=== PATIENT | male | born 1975 | race Two or more races ===

== ENCOUNTER 2024-07-02 08:16 | Day surgery (SDC) | payer OTHER ==
[2024-06-25 08:27] LABS: HEMOGLOBIN 14.2 g/dL (13-16.00); MEAN CELL VOLUME 93.2 fL (80.0-100.00); MEAN CORPUSCULAR HEMOGLOBIN 32.3 pg (27.00-32.0); MEAN CORPUSCULAR HGB CONC 34.6 g/dl (32.0-36.0); PLATELET COUNT 224 K/uL (150-450); RED CELL DISTRIBUTION WIDTH 13.4 % (11.5-14.5)
[2024-06-25 08:56] LABS: PH,URINE 6.5 (5.0-8.0); URINE APPEARANCE Clear; URINE BILIRRUBIN Negative (NEGATIVE); URINE BLOOD Negative; URINE COLOR Yellow; URINE GLUCOSE Negative (NEGATIVE); URINE KETONE Negative (NEGATIVE); URINE LEUKOCYTE Negative; URINE NITRATE Negative; URINE PROTEIN Negative (NEGATIVE)
[2024-06-25 09:01] LABS: INR 0.98; PARTIAL THROMBOPLASTIN TIME 30.8 SECONDS (22.0-34.0); PROTHROMBIN TIME 10.3 SECONDS (9.0-11.5); URINE RBC 4.2 uL (0.0-20.8)
[2024-06-25 09:02] LABS: ALBUMIN 4.1 gm/dL (3.4-5.0); CALCIUM 9.3 mg/dL (8.5-10.1); CREATININE SERUM 0.83 mg/dL (0.70-1.30); GFR 98.07; POTASSIUM 4.12 mEq/L (3.5-5.1)
[2024-06-25 09:15] LABS: URINE BACTERIA 1.2 uL (0.0-1933); URINE EPITHELIAL CELLS 0.7 uL (0.0-38.8)
[~2024-07-02 08:16] MED LIST: ALTACE5 MG PO; LIPITOR20 MG PO
[2024-07-02] MEDS ORDERED: CEFAZOLIN SODIUM 1,000 MG VIAL ONE ×2 (09:04→11:53)
[2024-07-02] MEDS ORDERED: LIDOCAINE HCL 1%/EPINEPHRINE 20ML VIAL IJ ONE (11:51)
[2024-07-02] MEDS ORDERED: POVIDONE-IODINE 118 ML BOTT TOP ONE (11:51)
[2024-07-02] MEDS ORDERED: POVIDONE-IODINE SCRUB 118 ML BOTT TOP ONE (11:51)
[2024-07-02] MEDS ORDERED: EPINEPHRINE HCL/PF 1 MG/ML AMPUL ONE (11:52)
[2024-07-02] MEDS ORDERED: CEFAZOLIN SODIUM 1,000 MG VIAL IV ONE (13:15)
[2024-07-02] MEDS ORDERED: CIPROFLOXACIN HCL 0.175 MG/DR DROPS OP ONE (13:45)
[2024-07-02] MEDS ORDERED: BACITRACIN 28.35 GM OINT.TUBE TOP ONE (13:45)
[2024-07-02] MEDS ORDERED: CEPHALEXIN500 MG PO (13:49)
[2024-07-02] MEDS ORDERED: CIPROFLOXACIN2.5 ML OTIC (13:50)
== END 2024-07-02 15:50 | disposition home or self-care (01) ==
LOC: CIR.AMB 08:16
PROVIDERS: ATTEND Otolaryngology Otology & Neurotology
DX: H61.391 Other acquired stenosis of right external ear canal (principal); H90.A11 Conductive hearing loss, unilateral, right ear with restricted hearing on the contralateral side; E78.00 Pure hypercholesterolemia, unspecified; I10 Essential (primary) hypertension

== ENCOUNTER 2025-07-15 05:04 | Day surgery (SDC) | payer OTHER ==
[2025-07-08 07:56] LABS: URINE APPEARANCE Clear; URINE BILIRRUBIN Negative (NEGATIVE); URINE BLOOD Negative; URINE COLOR Yellow; URINE GLUCOSE Negative (NEGATIVE); URINE KETONE Negative (NEGATIVE); URINE LEUKOCYTE Negative; URINE NITRATE Negative; URINE PROTEIN Negative (NEGATIVE); URINE UROBILINOGEN 0.2 E.U./dl
[2025-07-08 07:59] LABS: URINE BACTERIA 0 uL (0.0-1933); URINE CAST 0.00 uL (0.0-1.40); URINE EPITHELIAL CELLS 0.0 uL (0.0-38.8); URINE RBC 1.3 uL (0.0-20.8); URINE WBC 0 uL (0.0-23.2)
[2025-07-08 08:01] LABS: BASO % 0.9 % (0.1-1.2); EOS # 0.26 (0.04-0.54); EOS % 6.1 % (0.7-7.0); LYMPH # 1.21 (1.18-3.74); LYMPH % 28.5 % (19.3-53.1); MEAN PLATELET VOLUME 9.50 fl (9.4-12.4); MONO # 0.60 (0.24-0.82); NEUT # 2.13 (1.56-6.13); NEUT % 50.2 % (34.0-71.1); RED CELL DISTRIBUTION WIDTH 12.3 % (11.6-14.4)
[2025-07-08 08:10] LABS: MONO % 14.1 % (4.7-12.5)
[2025-07-08 08:26] VITALS: BP 111/70
[2025-07-08 08:27] LABS: INR 1.0
[2025-07-08 09:00] LABS: BUN CREA RATIO 18.0 (7.0-25.0); CREATININE SERUM 0.87 mg/dL (0.70-1.30); GFR 92.51; GLUCOSE FASTING 99.0 mg/dL (65-100); OSMOLALITY SERUM 284.0 MOSM/KG (275-295)
[~2025-07-15] VITALS: Ht 188 cm; Wt 88.5 kg
[~2025-07-15 05:04] MED LIST changes: +CEPHALEXIN500 MG PO; +CIPROFLOXACIN2.5 ML OTIC
[2025-07-15] MEDS ORDERED: CIPROFLOXACIN HCL 0.175 MG/DR DROPS OTIC ONE (09:00)
[2025-07-15] MEDS ORDERED: EPINEPHRINE HCL/PF 1 MG/ML AMPUL IJ ONE (09:00)
[2025-07-15] MEDS ORDERED: CEFAZOLIN SODIUM 1,000 MG VIAL IV ONE (09:00)
[2025-07-15] MEDS ORDERED: LIDOCAINE HCL 1%/EPINEPHRINE 20ML VIAL IJ ONE (09:00)
[2025-07-15] MEDS ORDERED: POVIDONE-IODINE 118 ML BOTT TOP ONE (09:00)
[2025-07-15] MEDS ORDERED: CEPHALEXIN500 M1 PO (10:22)
[2025-07-15] MEDS ORDERED: CIPROFLOX-DEXA7.5 ML OT (10:23)
== END 2025-07-15 12:30 | disposition home or self-care (01) ==
LOC: CIR.AMB 05:04
PROVIDERS: ATTEND Otolaryngology Otology & Neurotology
DX: H90.A12 Conductive hearing loss, unilateral, left ear with restricted hearing on the contralateral side (principal); H72.02 Central perforation of tympanic membrane, left ear; D23.22 Other benign neoplasm of skin of left ear and external auricular canal

== ENCOUNTER 2025-07-15 15:35 | Emergency (ER) | payer OTHER ==
[~2025-07-15] VITALS: Ht 188 cm; Wt 88.5 kg
[~2025-07-15 15:35] MED LIST changes: +CEPHALEXIN500 M1 PO; +CIPROFLOX-DEXA7.5 ML OT
[2025-07-15] MEDS ORDERED: PROMETHAZINE HCL 50 MG/ML AMPUL IM ONE (16:45)
[2025-07-15] MEDS ORDERED: KETOROLAC TROMETHAMINE 30 MG VIAL IM ONE (16:45)
== END 2025-07-15 16:42 | disposition home or self-care (01) ==
LOC: ER 15:35
DX: H95.42 Postprocedural hemorrhage of ear and mastoid process following other procedure (principal)